=== PATIENT | female | born 1965 | race Two or more races ===

== ENCOUNTER → 2025-01-22 | Outpatient (CLI) | payer MEDICAID, SELFPAY ==
--- NOTE | 2025-01-22 15:30 | XR_ITS ---
Examination: Screening digital mammography, bilateral Computer aided detection 3-D breast Tomosynthesis, bilateral Date and time of exam: January 22, 2025, 1548 hours, compared to mammograms dating to January 01, 2015 Indication: Screening Technique: Nonmagnified MLO, CC views of the breasts to been obtained, reconstructed from 3-D Tomosynthesis images. R2 computer aided detection program utilized for evaluation of suspicious masses and/or abnormal calcifications. 3-D Tomosynthesis images obtained. Findings: Scattered areas of fibroglandular density Benign calcifications No interval suspicious masses Impression: BI-RADS category II: Benign Findings. Recommend 1 year follow-up mammogram.
== END | disposition home or self-care (01) ==
PROVIDERS: PCP Nurse Practitioner Primary Care; Referring Provider Nurse Practitioner Primary Care; Visit Provider Nurse Practitioner Primary Care
DX: Z12.31 Encounter for screening mammogram for malignant neoplasm of breast (principal); R92.323 Mammographic fibroglandular density, bilateral breasts; R92.1 Mammographic calcification found on diagnostic imaging of breast
CPT/HCPCS: 77063; 77067

== ENCOUNTER → 2025-02-26 | Outpatient (CLI) | payer MEDICAID, SELFPAY ==
--- NOTE | 2025-02-26 13:30 | XR_ITS ---
Examination: Pelvic ultrasound, transabdominal, complete Technique: Transabdominal ultrasound of the pelvis performed using grayscale imaging Date and time of exam: February 26, 2025, 1337 hours INDICATION: Pelvic pain beginning 1 year ago FINDINGS: Uterus 8.3 cm uterine fundal mass 20 x 16 x 18 mm Endometrial stripe 1.3 cm Right ovary 2.6 cm arterial flow Left ovary 2.0 cm arterial flow IMPRESSION: Abnormally thickened endometrial stripe 1.3 cm, differential would include endometrial hyperplasia, malignant neoplasm of the endometrium, recommend MRI pelvis follow-up pre and postcontrast
--- NOTE | 2025-02-26 13:30 | XR_ITS ---
Examination: Abdomen sonogram, complete Date and time of exam: February 26, 2025, 1348 hours INDICATIONS: Abdominal pain beginning 1 year ago.. Technique: Multiple real-time grayscale transabdominal sonographic images of the abdomen have been obtained. Findings: Absent gallbladder Common bile duct 0.2 cm Pancreatic head 2.3 cm Aorta not enlarged Liver 14.6 cm fatty infiltration smooth contour Normal hepatopetal portal venous flow Patent IVC Right kidney 9.3 cm cortex 1.1 cm Left kidney 10.3 cm renal cortex 1.6 cm Mild renal scarring Mild left hydronephrosis Spleen 8.7 cm IMPRESSION: Absent gallbladder Normal common bile duct Mild left hydronephrosis
== END | disposition home or self-care (01) ==
LOC: CDIM 13:15
PROVIDERS: Referring Provider Nurse Practitioner Primary Care; Visit Provider Nurse Practitioner Primary Care
DX: R93.89 Abnormal findings on diagnostic imaging of other specified body structures (principal)
CPT/HCPCS: 76700; 76856